=== PATIENT | female | born 1945 ===

== ENCOUNTER 2024-11-14 14:51 | Emergency (ER) | payer OTHER ==
[~2024-11-14] VITALS: Ht 165.1 cm; Wt 85.2 kg
--- NOTE | 2024-11-14 15:22 | ELECTROCARDIOGRAPH REPORT ---
[facility] Test Date: 2024-11-14 Test Time: 15:18:34 Pat Name: CLIFTON FERNANDEZ Department: [facility]- Patient ID: [facility]-[id number] Room: Gender: F [place] Scaler: : 1945 Requested By: JOVITA BAUER Order Number: [id number] Reading MD: Measurements Intervals [place] Rate: 71 P: -12 [place]: 195 QRS: -33 QRSD: 94 T: 85 QT: 388 QTc: 422 Interpretive Statements Sinus rhythm Abnormal R-wave progression, late transition Left ventricular hypertrophy Inferior infarct, old Please click the below link to view image of tracing.
--- NOTE | 2024-11-14 15:36 | Physician Documentation ---
History of Present Illness ~ Chief Complaint: Palpitations Stated Complaint: ANXIETY Time Seen by MD: 19:00 HPI Additional note by Dennis Gibson DO: I took over the care of this patient from previous physician. I reviewed any previous notes available, obtain my own history, review of systems and physical examination was performed by myself. This is a very pleasant 79-year-old female who presents for evaluation anxiety she has known anxiety diagnosis face citalopram, takes hydroxyzine, however for the last four days hydroxyzine does not seem to be. No obvious trigger provocation. The particular palliating or aggravating factors. It has never does report palpitations that she describes this as a strong leads. The bleeding is irregular. It is not accompanied by chest pain, difficulty breathing there is no evidence of nausea, vomiting, diarrhea, abdominal pain, she does not report any object deficits when I inquired in plain Hungarian. Does not trauma. She has not been able to elicit any palliating or aggravating facto rs for palpitations either. This has not happened in the past. Denies use of tobacco, alcohol or illicit substances Medication Reconciliation Allergies: Coded Allergies: No Known Allergies (Unverified , 11/14/24) Review of Systems ROS 10 point review of systems was performed and unless noted above in HPI is negative for acute process/complaint. Physical Exam Vital Signs: Temperature: 97.6, Source: Temporal, Heart Rate: 79, Respiratory Rate: 18, BP: 188/87, Pulse Oximetry: 98, Weight: 85.150 Physical Exam Physical examination: GENERAL: Awake, alert, oriented, GCS 15, no apparent distress, non-toxic appearing, answers questions, follows commands appropriately. HEENT: Atraumatic, normocephalic, pupils equal, extraocular muscles intact Active gross movements, sclerae anicteric, mucus membranes moist, no stridor. NECK: Midline, no JVD CARDIOVASCULAR: Good skin perfusion without evidence of pallor, mottling. PULMONARY: Nonlabored, symmetric chest rise, no audible wheezing, no accessory muscle use, no respiratory distress, speaking in full sentences. GASTROINTESTINAL: Not distended. NEUROLOGIC: Lucid with normal mental status. Normal facial symmetry. Moves all extremities symmetrically and with purpose. No truncal ataxia. Speech is fluid without evidence of dysarthria or aphasia, no focal deficits appreciated. EXTREMITIES: Acute deformities Skin: warm, dry PSYCHIATRIC: Normal affect, normal insight, normal concentration. Focused exam: [] Progress Results/Orders Results/Orders Completed Orders - DENNIS GIBSON DO Lorazepam Tablet (Ativan Tablet) (11/14/24 19:05) Medications Received in ER Medications (Trade) Dose Ordered Sig/Crow Route PRN Reason Start Time Stop Time Status Last Admin Dose Admin (Ativan tablet) 0.5 mg ONCE ONCE PO 11/14/24 19:05 11/14/24 19:06 DC 11/14/24 19:12 0.5 MG Vital Signs 11/14/24 11/14/24 15:03 18:54 Temp 97.6 97.6 Pulse 79 70 Resp 18 16 B/P (MAP) 188/87 203/97 (132) Pulse Ox 98 96 O2 Flow Rate 0 Laboratory Tests Test 11/14/24 15:51 11/14/24 17:38 11/14/24 18:44 White Blood Count 4.8 Red Blood Count 4.61 Hemoglobin 14.3 Hematocrit 42.2 Mean Corpuscular Volume 91.7 Mean Corpuscular Hemoglobin 31.0 Mean Corpuscular Hemoglobin Concent 33.8 Red Cell Distribution Width 13.7 Platelet Count 244 Mean Platelet Volume 8.3 Neutrophils (%) (Auto) 69.1 Lymphocytes (%) (Auto) 19.2 L Monocytes (%) (Auto) 9.8 Eosinophils (%) (Auto) 1.2 Basophils (%) (Auto) 0.7 Neutrophils # (Auto) 3.3 Lymphocytes # (Auto) 0.9 L Monocytes # (Auto) 0.5 Eosinophils # (Auto) 0.1 Basophils # (Auto) 0.0 CBC Comment Sodium Level 136 Potassium Level 3.6 Chloride Level 101 Carbon Dioxide Level 26.0 Anion Gap 9 Blood Urea Nitrogen 13 Creatinine 0.97 H Estimated GFR/1.73 m2 55 BUN/Creatinine Ratio 13.4 Glucose Level 105 H Calcium Level 8.8 Troponin I High Sensitivity 14 15 Pro-B-Type Natriuretic Peptide 432 Albumin 4.0 Chemistry Comments Troponin I High Sens Percent Delta 7 Troponin I Hi Sens Absolute Change 1 EKG/XRAY/CT/US/VASC/MRI EKG : Additional Comment EKG was obtained and interpreted by myself shows sinus rhythm of 71, normal SC interval, narrow QRS, no QT prolongation, normal axis, LVH by aVL criteria, PVC noted. Chest X-Ray : Additional Comments [facility] [address] [facility], [facility] [address] DIAGNOSTIC RADIOLOGY Patient: CLIFTON FERNANDEZ I Medical Record: [id number] [facility] : 1945, Age: 79 Sex: Female Location: ER Patient Status: [facility] ER Service Date/Time: 11/14/241554 Ordering Physician: OLAG HAMEED Exam: CHEST,SINGLE VIEW CHEST RADIOGRAPH Indication: CP Technique: Single frontal view of the chest was obtained Comparison: None FINDINGS: Lines and Tubes: None Lungs: No focal consolidation. Pleura: No effusion. No pneumothorax. Cardiomediastinal contours: Unremarkable Bones: No acute osseous abnormality. IMPRESSION: No acute cardiopulmonary disease. Electronically Signed by:OLIVER LESLIE MD Date & Time: 11/14/241551 Dictated by: OLIVER LESLIE MD Dictation date and time: 11/14/241551 Primary Care Provider: NO PRIMARY CARE PROVIDER cc: OLGA HAMEED ~ Medical Decision Making Findings Facility Status: ED Holds, E process The plan was discussed with the patient, who demonstrates clear understanding of the plan and is in agreement with the plan unless otherwise noted in the chart. All questions have been answered, all concerns were addressed unless otherwise documented. I was available throughout their ED stay for frequent reassessment and questions. Differential Diagnoses (considered and possible or likely): [Anxiety, panic attack, dehydration, electrolyte derangement, less likely ACS, dictations most likely PACs as her EKG, Pac ulcer has been considered, less likely atrial flutter, atrial fibrillation, highly unlikely to be malignant arrhythmia. Less likely intrathoracic process. ??Differential Diagnoses (considered and unlikely, not requiring evaluation currently): [Thyrotoxicosis has been considerably unlikely in the setting.] MDM Data Please see HPI for the following: Independent Historians and external Records Review. Historian: [Patient] Independent Historians: ?[None] Medication Management: [Reviewed medication list] Social History and determinants: [Reviewed] Please see the body of the note for the following: Any independent interpretations of ECG, imaging studies. All vitals signs/haemodynamics, ordered tests were independently reviewed and interpreted by myself. Nursing triage complaint and vitals reviewed, additional nursing notes were reviewed as available and I agree unless otherwise noted or documented in contradiction in the chart Vital Signs: Independently reviewed Labs: Independently interpreted Imaging: Independently interpreted Old Medical Records: Independently reviewed, see HPI for relevant summary and information Pulse Oximetry: [98%] interpreted as [normal on room air] by me Additionally notably showing: [Hemodynamics reviewed. She is hemodynamically stable without evidence of tachycardic, hypotension, respiratory distress.] Unremarkable laboratory workup except for mildly elevated BNP. Unremarkable imaging. No evidence of acute cardiopulmonary process on chest x-ray per my interpretation. Midline trachea, normal cardiac silhouette, no focal infiltrates. Tests considered but not ordered include: [Thyroid studies can be done on an outpatient basis] Social Determinants of Health Impact: Patient was evaluated in [facility], or [facility] [place] to healthcare due to below par ratio of patient to medical providers. [] Comorbid Conditions Impacting Present Evaluation and Care/Treatment: [Known history of anxiety] Management Discussions with other Healthcare Providers: [None] Treatment and Disposition Medication Management (Given or considered): []. See EMR for details Consideration for Hospitalization/Escalation/Deescalation of Care: Admission for observation has been considered, [however the patient is able to tolerate p.o., their symptoms are controlled, they are able to rely on oral medications, and their chief complaint/diagnosis can be managed on outpatient basis.] ?ED Course:?[] ?Shared decision making:?[] Code status:?FULL Please see the full Electronic Medical Record for full details of nursing documentation, medications list, other records of complete past medical history and conditions, vital signs, laboratory studies, and any radiologic study interpretations by radiologists. Portions of this note were completed using [employer] dictation software and as a result there may exist minor errors in spelling. I have reviewed elements of past family and social history and agree as included in note. Departure Disposition: HOME / SELF CARE / HOMELESS Impression: Primary Impression: Palpitations Additional Impressions: Anxiety Panic attack Ventricular premature beats Condition: Improved Discharge Instructions: Palpitations, [id number], Premature Ventricular Contraction Referrals: NO PRIMARY CARE PROVIDER (PCP) Prescriptions Lorazepam (Ativan) 0.5 Mg Tablet 1 TAB PO Q12H PRN PRN for anxiety for 30 Days, #15 TAB 0 Refills Prov: DENNIS GIBSON DO 11/14/24 Education Educated: Patient Educated regarding: diagnosis, treatment, prognosis, need for follow up Additional Comment Medical Screen Exam History: This is an 79-year-old female with history of anxiety who presents with palpitations intermittently for the last 5 days, reports no chest pain. Patient reports no cardiac history. Exam: VITALS: Reviewed and as above. GENERAL: Alert, nontoxic appearing, no apparent distress. RESPIRATORY: No increased work of breathing, no respiratory distress, speaking in full clear sentences MSE performed in triage and patient returned to ED lobby by nursing staff to await an available ED room, EKG protocol initiated by nursing staff. Signature Scribe Signature: No scribe Attestation: This note accurately reflects clinical decisions, work performed by myself, DO YOSEPH Lewis [employer] Nov 14, 2024 15:36 DENNIS GIBSON DO Nov 14, 2024 19:12
--- NOTE | 2024-11-14 15:54 | RADIOLOGY REPORT ---
CHEST RADIOGRAPH Indication: CP Technique: Single frontal view of the chest was obtained Comparison: None FINDINGS: Lines and Tubes: None Lungs: No focal consolidation. Pleura: No effusion. No pneumothorax. Cardiomediastinal contours: Unremarkable Bones: No acute osseous abnormality. IMPRESSION: No acute cardiopulmonary disease.
[2024-11-14 16:17] LABS: BASOPHILS % (AUTO) 0.7 % (0-1); EOSINOPHILS # (AUTO) 0.1 X10'3 (0-0.9); EOSINOPHILS % (AUTO) 1.2 % (0-6); HEMATOCRIT 42.2 % (35.0-45.0); HEMOGLOBIN 14.3 g/dl (12.0-16.0); LYMPHOCYTES # (AUTO) 0.9 X10'3 (1.1-4.8); LYMPHOCYTES % (AUTO) 19.2 % (21-51); MEAN CORPUSCULAR HGB CONC 33.8 g/dL (33.0-36.5); MEAN CORPUSCULAR VOLUME 91.7 FL (78-98); MEAN PLATELET VOLUME 8.3 FL (7.4-10.4); MONOCYTES # (AUTO) 0.5 X10'3 (0-0.9); MONOCYTES % (AUTO) 9.8 % (2-12); NEUTROPHILS # (AUTO) 3.3 X10'3 (1.8-7.7); NEUTROPHILS % (AUTO) 69.1 % (42-75); PLATELET COUNT 244 X10'3 (140-440); RED BLOOD COUNT 4.61 X10'6 (4.20-5.60); RED CELL DISTRIBUTION WIDTH 13.7 % (11.5-14.5); WHITE BLOOD COUNT 4.8 X10'3 (4.5-11.0)
[2024-11-14 16:28] LABS: ANION GAP 9 (8-16); BLOOD UREA NITROGEN 13 MG/DL (7-18); BUN/CREATININE RATIO 13.4 (10.0-20.0); CALCIUM 8.8 MG/DL (8.5-10.1); CHLORIDE 101 MMOL/L (99-107); CREATININE 0.97 MG/DL (0.40-0.90); GLUCOSE 105 MG/DL (70-104); POTASSIUM 3.6 MMOL/L (3.5-5.1); PRO BRAIN NATRIURETIC PEPTIDE 432 PG/ML (0-450); SODIUM 136 MMOL/L (135-145); eCRCL 41 ML/MIN; eGFR 55 ML/MIN
[2024-11-14] MEDS ORDERED: LORazepam 1 MG tablet PO ONE (19:00)
[2024-11-14] MEDS: LORazepam 0.5 MG tablet PO ONE (19:12)
[2024-11-14] MEDS ORDERED: LORA-268 PO (19:17)
[2024-11-14 19:27] VITALS: BP 189/92; PULSE 69; RESP 16; TEMP 98.6; O2SAT 97
== END 2024-11-14 20:23 | disposition home or self-care (01) ==
LOC: ER 14:52
DX: F41.0 Panic disorder [episodic paroxysmal anxiety] (principal); R00.2 Palpitations; I49.3 Ventricular premature depolarization; R06.02 Shortness of breath
CPT/HCPCS: 36415; 71045; 80048; 83880; 84484; 85025; 93005; 99285